=== PATIENT | female | born 1985 | race Caucasian/White ===

== ENCOUNTER 2016-12-04 18:58 | Emergency (ER) | payer OTHER ==
--- NOTE | 2016-12-04 19:59 | ED ---
- HPI Summary HPI Summary: Patient is an 8 week (by US) otherwise healthy female who presents to ED after 3 days of vaginal bleeding. 2 days ago, patient began spotting a brown discharge. Today the discharge was bright red and without clots. Denies cramping, abd pain, urinary symptoms, BRYANT, light headedness, or back pain. States yesterday she was feeling extremely fatigued and stayed in bed all day. Otherwise feeling normal. Takes calcium and vitamins. Does not yet have an OBGYN. Recently arrived back home from [place] where she was found out there to be . Has appt next week. - History of Current Complaint Chief Complaint: EDVaginalBleeding Stated Complaint: VAG BLEEDING/8WKS PREG Time Seen by Provider: 12/04/16 19:37 Hx Obtained From: Patient Chief Complaint: Concern for Demise Onset/Duration: Started Days Ago Timing: Intermittent Severity: Mild Current Severity: Moderate Pain Intensity: 5 Character: None Associated Signs and Symptoms: Positive: Negative, Vaginal Bleeding or Discharge - Assessment Hx Now: Yes Expected Date of Delivery: 07/16/17 Hx : 1 Hx Para: 0 History of Ectopic : No Hx Pelvic Inflammatory Disease: No Vaginal Bleeding Amount: Medium Contraction Intensity: No Contractions Contraction Pattern: No Contractions Hx Hysterectomy: No History of STI/STD: No - Risk Factors Ovarian Torsion Risk Factor: Reproductive Age - Allergies/Home Medications Allergies/Adverse Reactions: Allergies Allergy/AdvReac Type Severity Reaction Status Date / Time No Known Allergies Allergy Verified 12/04/16 19:12 PMH/Surg Hx/FS Hx/Imm Hx Previously Healthy: Yes - Immunization History Hx Pertussis Vaccination: No Immunizations Up to Date: No Infectious Disease History: No Infectious Disease History: Denies: Traveled Outside the [place] in Last 30 Days - Social History Occupation: Employed Full-time Lives: With Family Hx Substance Use: No Substance Use Type: Reports: None Hx Tobacco Use: No Do You Chew or Dip Tobacco: No Have You Chewed or Dipped Tobacco in the LAST YEAR: No Have You Smoked in the Last Year: No Household Exposure: No Review of Systems Positive: Fatigue Eyes: Negative Cardiovascular: Negative Respiratory: Negative Positive: see HPI, discharge - bleeding - BRB Musculoskeletal: Negative Skin: Negative Neurological: Negative Psychological: Normal All Other Systems Reviewed And Are Negative: Yes Physical Exam - Physical Exam Triage Information Reviewed: Yes Vital Signs Reviewed: Yes Appearance: Positive: Well-Appearing, No Pain Distress, Well-Nourished Skin: Positive: Warm, Skin Color Reflects Adequate Perfusion Head/Face: Positive: Normal Head/Face Inspection, Temporal Artery Tenderness Eyes: Positive: Normal, EOMI, VON ENT: Positive: Normal ENT inspection Neck: Positive: Supple, Nontender Respiratory/Lung Sounds: Positive: Clear to Auscultation, Breath Sounds Present Cardiovascular: Positive: Normal Abdomen Description: Positive: Nontender, Soft Bowel Sounds: Positive: Present Musculoskeletal: Positive: Normal Neurological: Positive: Normal Psychiatric: Positive: Normal Diagnostics - Vital Signs Vital Signs Temp Pulse Resp BP Pulse Ox 12/04/16 19:06 99.4 F 94 20 129/81 100 - Laboratory Result Diagrams: 12/04/16 20:05 12/04/16 20:05 Lab Statement: Any lab studies that have been ordered have been reviewed, and results considered in the medical decision making process. Course/Dx - Course Course Of Treatment: Light vaginal bleeding with x 3 days. IUP on US. 9 weeks gestation. Patient feeling OK. UA positive for leuks. Will treat for UTI with nitrofurantoin - safe in preg. Follow up with OB next week. - Differential Diagnosis/HQI/PQRI: Incomplete , Threatened , Early , UTI - Diagnoses Provider Diagnoses: UTI (urinary tract infection) during Discharge - Discharge Plan Condition: Stable Disposition: HOME Prescriptions: Nitrofurantoin Monohyd Macro [Macrobid] 100 mg PO BID #14 cap Nitrofurantoin Monohyd Macro [Macrobid] 100 mg PO BID #14 cap Patient Education Materials: Urinary Tract Infection in (ED) Referrals: No Primary Care Phys,NOPCP [Primary Care Provider] - Additional Instructions: Take abx as prescribed to you. Dx. Urinary Tract Infection Drink plenty of fluids. Supplement with cranberry or braga juice. You may also take an over the counter cranberry supplement. If you have any questions about this, you may ask your pharmacist. If your symptoms have not improved in 1-2 days, please return to , the emergency room, or call your PCP. Please take any medications prescribed to you as directed.
[2016-12-04 20:12] LABS: Hematocrit 39 % (35-47); Hemoglobin 13.2 g/dl (12.0-16.0); Mean Corpuscular HGB Conc 34 g/dl (31-36); Mean Corpuscular Hemoglobin 30 pg (27-31); Mean Corpuscular Volume 87 fL (80-97); Mean Platelet Volume 7 um3 (7.4-10.4); Red Blood Count 4.41 10^6/ul (4.0-5.4); Red Cell Distribution Width 13 % (10.5-15); White Blood Count 10.8 10^3/ul (3.5-10.8)
[2016-12-04 20:28] LABS: Albumin 3.6 g/dL (3.2-5.2); BUN/Creatinine Ratio 19.4 (8-20); Calcium 8.8 mg/dL (8.6-10.3); EGFR African American 134.8 (>60); EGFR Non-African American 104.8 (>60); Globulin 2.5 g/dL (2-4); Potassium 3.6 mmol/L (3.5-5.0); Total Bilirubin 0.3 mg/dL (0.2-1.0); Total Protein 6.1 g/dL (6.4-8.9)
[2016-12-04 21:02] LABS: Urine Bacteria 2+ (Absent); Urine Bilirubin Negative (Negative); Urine Glucose Negative (Negative); Urine Nitrite Negative (Negative)
--- NOTE | 2016-12-04 21:34 | RAD ---
INDICATION: Early with bleeding COMPARISON: None TECHNIQUE: Transvaginal scans were performed for the purposes of early evaluation. FINDINGS: There is a single intrauterine gestation with identification of the pole, yolk sac, and cardiac activity of 176 beats for minute. The crown-rump length corresponds to a 8 week 6 day gestation and the gestational sac size measurement to a 9 weeks 0 day gestation. The estimated due date is July 09, 2017. There is no subchorionic hemorrhage. The right ovary measures 4.4 x 3.0 x 2.3 cm and the left ovary 3.5 x 2.3 x 2.9 cm. IMPRESSION: IUP AT 9 WEEKS 0 DAYS WITH CONFIRMATION OF CARDIAC ACTIVITY.
[2016-12-04] MEDS ORDERED: Nitrofurantoin Macrocrystals* 100 MG CAP PO ONE (21:52)
[2016-12-04 22:38] VITALS: BP 134/78
== END 2016-12-04 22:36 | disposition home or self-care (01) ==
LOC: ED 18:58
DX: O23.41 Unspecified infection of urinary tract in pregnancy, first trimester (principal); N93.9 Abnormal uterine and vaginal bleeding, unspecified; Z3A.08 8 weeks gestation of pregnancy
CPT/HCPCS: 36415; 76801; 80053; 81003; 81015; 84702; 85025; 85610; 85730; 86850; 86900; 86901; 87086; 99282; A9270-GY

== ENCOUNTER 2016-12-08 12:40 | Emergency (ER) | payer OTHER ==
[2016-12-08] MEDS ORDERED: NS 0.9% 1000 ML* 1,000 ML IV ONE (13:01)
[2016-12-08] MEDS ORDERED: Promethazine TAB* 25 MG PO ONE (13:03)
[2016-12-08 13:13] VITALS: BP 119/74
--- NOTE | 2016-12-08 13:18 | UC ---
UC General HPI - HPI Summary HPI Summary: patient is 9 weeks , she has had non stop vomiting for the past 2 days. She was seen in the ER for UTI 2 days ago and put on macrobid. she states that she is not sure that she has truly gotten a dose because after the visit she started vomiting and has not stopped. has not urinated in 24 hours. cannot even tolerate ice. She has her first OB appointment next week. - History of Current Complaint Chief Complaint: UCGeneralIllness Stated Complaint: VOMITING Time Seen by Provider: 12/08/16 12:54 Hx Obtained From: Patient Onset/Duration: Sudden Onset, Lasting Days Timing: Constant Onset Severity: Moderate Current Severity: Severe Pain Intensity: 7 Associated Signs & Symptoms: Positive: Headache, Vomiting, Weakness - Allergy/Home Medications Allergies/Adverse Reactions: Allergies Allergy/AdvReac Type Severity Reaction Status Date / Time No Known Allergies Allergy Verified 12/04/16 19:12 Home Medications: Home Medications Vit W/ Ferrous Fumara [ One Daily 27-0.8 mg] 12/08/16 [History ] PMH/Surg Hx/FS Hx/Imm Hx Previously Healthy: Yes - Surgical History Surgical History: Yes Surgery Procedure, Year, and Place: appendicitis. umbilical hernia as a child - Family History Known Family History: Negative: Cardiac Disease, Hypertension - Social History Alcohol Use: None Substance Use Type: None Smoking Status (MU): Never Smoked Tobacco Have You Smoked in the Last Year: No Review of Systems Constitutional: Fatigue Skin: Negative Eyes: Negative ENT: Negative Respiratory: Negative Gastrointestinal: Vomiting Genitourinary: Negative Motor: Negative Neurovascular: Negative Musculoskeletal: Negative Neurological: Headache Psychological: Negative All Other Systems Reviewed And Are Negative: Yes Physical Exam Triage Information Reviewed: Yes Appearance: Well-Nourished, Ill-Appearing, Pain Distress Vital Signs: Initial Vital Signs Temp 97.5 F 12/08/16 13:07 Pulse 73 12/08/16 13:07 Resp 16 12/08/16 13:07 BP 119/74 12/08/16 13:07 Pulse Ox 98 12/08/16 13:07 Vital Signs Reviewed: Yes Eye Exam: Normal Eyes: Positive: Conjunctiva Clear ENT Exam: Normal ENT: Positive: Normal ENT inspection, Pharynx normal, TMs normal Dental Exam: Normal Neck exam: Normal Neck: Positive: Supple, Nontender, No Lymphadenopathy Respiratory Exam: Normal Respiratory: Positive: Chest non-tender, Lungs clear, Normal breath sounds Cardiovascular Exam: Normal Cardiovascular: Positive: RRR, No Murmur, Pulses Normal Abdominal Exam: Normal Abdomen Description: Positive: Nontender, No Organomegaly, Soft Bowel Sounds: Positive: Present Musculoskeletal Exam: Normal Musculoskeletal: Positive: Strength Intact, ROM Intact, No Edema Neurological Exam: Normal Neurological: Positive: Alert, Muscle Tone Normal Psychological Exam: Normal Skin Exam: Other - dry, some tenting noted on hands Re-Evaluation - Re-Evaluation First Eval Re-Evaluation Time: 14:20 Change: Improved - patient tolerating fluids and phenergan well. states some improvement Comment: patient able to void Course/Dx - Course Course Of Treatment: hx obtained, exam performed, IV inserted for IV hydration, phnergen given for anti nausea. - Differential Dx - Multi-Symptom Provider Diagnoses: vomiting. dehydration. Discharge - Discharge Plan Condition: Stable Disposition: HOME Patient Education Materials: Nausea and Vomiting in (ED) Additional Instructions: Take the phenergan as needed up to every 6 hours. Attempt to increase your fluid intake as tolerated. Follow up with your OB next week. return to ER for further evaluation if your vomiting becomes uncontrolled.
== END 2016-12-08 14:39 | disposition home or self-care (01) ==
LOC: UCEAST 12:40
DX: O21.9 Vomiting of pregnancy, unspecified (principal); Z3A.09 9 weeks gestation of pregnancy; E86.0 Dehydration; Z87.440 Personal history of urinary (tract) infections
CPT/HCPCS: 96360; 99212; G0463

== ENCOUNTER 2017-01-22 04:11 | Emergency (ER) | payer OTHER ==
[2017-01-22] MEDS ORDERED: NS 0.9% 1000 ML* 2,000 ML IV ONE (04:51)
[2017-01-22] MEDS ORDERED: Metoclopramide IV* 5 MG/ML 2 ML VIAL IV ONE (04:51)
[2017-01-22 05:58] LABS: Hematocrit 40 % (35-47); Hemoglobin 13.8 g/dl (12.0-16.0); Mean Corpuscular HGB Conc 35 g/dl (31-36); Mean Corpuscular Hemoglobin 31 pg (27-31); Mean Corpuscular Volume 89 fL (80-97); Mean Platelet Volume 8 um3 (7.4-10.4); Red Blood Count 4.48 10^6/ul (4.0-5.4); Red Cell Distribution Width 13 % (10.5-15); White Blood Count 10.5 10^3/ul (3.5-10.8)
[2017-01-22 06:07] LABS: ALT 10 U/L (7-52); AST 16 U/L (13-39); Albumin 3.3 g/dL (3.2-5.2); Alkaline Phosphatase 41 U/L (34-104); Anion Gap 7 mmol/L (2-11); BUN/Creatinine Ratio 14.3 (8-20); Blood Urea Nitrogen 10 mg/dL (6-24); CO2 Carbon Dioxide 23 mmol/L (22-32); Calcium 8.6 mg/dL (8.6-10.3); Chloride 103 mmol/L (101-111); EGFR African American 127.2 (>60); EGFR Non-African American 98.9 (>60); Globulin 2.6 g/dL (2-4); Glucose 107 mg/dL (70-100); Lipase < 10 U/L (11.0-82.0); Magnesium 1.8 mg/dL (1.9-2.7); Potassium 3.7 mmol/L (3.5-5.0); Sodium 133 mmol/L (133-145); Total Protein 5.9 g/dL (6.4-8.9)
--- NOTE | 2017-01-22 07:01 | ED ---
Job, Doctor,Porsha, scribed for Simi Valadez MD on 01/22/17 at 0701 . GI/ HPI - HPI Summary HPI Summary: 31 year old female arrived to [facility] c/o constant vomiting (9x/day) and diarrhea (5x/day) since 20:00 yesterday. She is 15 weeks , and has been vomiting for the duration of the . She has been taking medication regularly to help with the nausea/vomiting. She additionally reports feeling very dehydrated and hasn't urinated since 12:00 yesterday; this is her first . - History of Current Complaint Chief Complaint: EDNauseaVomitDiarrh Time Seen by Provider: 01/22/17 04:51 Stated Complaint: VOMITING/DIARRHEA 15 WKS PREG Hx Obtained From: Patient Onset/Duration: Started Hours Ago Timing: Constant Severity: Moderate Current Severity: Moderate Pain Intensity: 6 Associated Signs and Symptoms: Positive: Nausea, Vomiting. Negative: Dysuria Additional Signs & Symptoms: Positive: Positive Test - 15 weeks - Allergy/Home Medications Allergies/Adverse Reactions: Allergies Allergy/AdvReac Type Severity Reaction Status Date / Time No Known Allergies Allergy Verified 12/04/16 19:12 PMH/Surg Hx/FS Hx/Imm Hx - Surgical History Surgery Procedure, Year, and Place: appendicitis. umbilical hernia as a child Infectious Disease History: No Infectious Disease History: Denies: Traveled Outside the [place] in Last 30 Days - Family History Known Family History: Negative: Cardiac Disease, Hypertension - Social History Lives: With Family Alcohol Use: None Hx Substance Use: No Substance Use Type: Reports: None Hx Tobacco Use: No Smoking Status (MU): Never Smoked Tobacco Have You Smoked in the Last Year: No Review of Systems Negative: Fever Positive: Other - very dehydrated Positive: Vomiting, Nausea Positive: other - has not urinated for over 12 hours All Other Systems Reviewed And Are Negative: Yes Physical Exam Triage Information Reviewed: Yes Vital Signs On Initial Exam: Initial Vitals Temp Pulse Resp BP Pulse Ox 98.4 F 114 18 116/71 95 01/22/17 04:14 01/22/17 04:14 01/22/17 04:14 01/22/17 04:14 01/22/17 04:14 Vital Signs Reviewed: Yes Appearance: Positive: Well-Appearing, No Pain Distress Skin: Positive: Warm, Skin Color Reflects Adequate Perfusion, Dry Eyes: Positive: EOMI, VON ENT: Positive: Pharynx normal, TMs normal Neck: Positive: Supple, Nontender Respiratory/Lung Sounds: Positive: Clear to Auscultation, Breath Sounds Present. Negative: Rales, Rhonchi, Wheezes Cardiovascular: Positive: RRR. Negative: Murmur, Rub Abdomen Description: Positive: Nontender, Soft Bowel Sounds: Positive: Present Musculoskeletal: Positive: Strength/ROM Intact. Negative: Edema Left, Edema Right Neurological: Positive: Sensory/Motor Intact, Alert, Oriented to Person Place, Time, CN Intact II-III Psychiatric: Positive: Affect/Mood Appropriate Diagnostics - Vital Signs Vital Signs Temp Pulse Resp BP Pulse Ox 01/22/17 04:14 98.4 F 114 18 116/71 95 - Laboratory Lab Results: Lab Results 01/22/17 01/22/17 Range/Units 05:14 05:14 WBC 10.5 (3.5-10.8) 10^3/ul RBC 4.48 (4.0-5.4) 10^6/ul Hgb 13.8 (12.0-16.0) g/dl Hct 40 (35-47) % MCV 89 (80-97) fL MCH 31 (27-31) pg MCHC 35 (31-36) g/dl RDW 13 (10.5-15) % Plt Count 227 (150-450) 10^3/ul MPV 8 (7.4-10.4) um3 Neut % (Auto) 92.5 H (38-83) % Lymph % (Auto) 4.8 L (25-47) % Pitkin % (Auto) 2.4 (1-9) % Eos % (Auto) 0.2 (0-6) % Baso % (Auto) 0.1 (0-2) % Absolute Neuts (auto) 9.7 H (1.5-7.7) 10^3/ul Absolute Lymphs (auto) 0.5 L (1.0-4.8) 10^3/ul Absolute Monos (auto) 0.2 (0-0.8) 10^3/ul Absolute Eos (auto) 0 (0-0.6) 10^3/ul Absolute Basos (auto) 0 (0-0.2) 10^3/ul Absolute Nucleated RBC 0 10^3/ul Nucleated RBC % 0 Sodium 133 (133-145) mmol/L Potassium 3.7 (3.5-5.0) mmol/L Chloride 103 (101-111) mmol/L Carbon Dioxide 23 (22-32) mmol/L Anion Gap 7 (2-11) mmol/L BUN 10 (6-24) mg/dL Creatinine 0.70 (0.51-0.95) mg/dL Est GFR ( Amer) 127.2 (>60) Est GFR (Non-Af Amer) 98.9 (>60) BUN/Creatinine Ratio 14.3 (8-20) Glucose 107 H (70-100) mg/dL Calcium 8.6 (8.6-10.3) mg/dL Magnesium 1.8 L (1.9-2.7) mg/dL Total Bilirubin 0.70 (0.2-1.0) mg/dL AST 16 (13-39) U/L ALT 10 (7-52) U/L Alkaline Phosphatase 41 (34-104) U/L C-Reactive Protein 13.00 H (< 5.00) mg/L Total Protein 5.9 L (6.4-8.9) g/dL Albumin 3.3 (3.2-5.2) g/dL Globulin 2.6 (2-4) g/dL Albumin/Globulin Ratio 1.3 (1-3) Lipase < 10 L (11.0-82.0) U/L Result Diagrams: 01/22/17 05:14 01/22/17 05:14 Lab Statement: Any lab studies that have been ordered have been reviewed, and results considered in the medical decision making process. GIGU Course/Dx - Course Course Of Treatment: 15 week female with n/v pt is being hydrated at this time awaiting a urine and will be signed out to Dr. Willson - Diagnoses Provider Diagnoses: Hyperemesis arising during Discharge - Discharge Plan Condition: Stable Disposition: HOME The documentation as recorded by the ramosibDoctor granados Tahera accurately reflects the service I personally performed and the decisions made by , Simi Valadez MD.
[2017-01-22 09:12] LABS: Urine Bacteria Absent (Absent); Urine Bilirubin Negative (Negative); Urine Glucose Negative (Negative); Urine Nitrite Negative (Negative)
[2017-01-22 10:34] VITALS: BP 103/61
--- NOTE | 2017-01-23 11:14 | CONSULT ---
Consult Consult: Ms. Villalobos came in on the previous shift with N/V of which was an exacerbation of a chronic C/O. She was treated with meds and hydrated and felt much improved when I saw her. She was D/C'd in stable condition with a diagnosis of vomiting in .
== END 2017-01-22 09:56 | disposition home or self-care (01) ==
LOC: ED 04:11
DX: O21.0 Mild hyperemesis gravidarum (principal); Z3A.15 15 weeks gestation of pregnancy; E86.0 Dehydration
CPT/HCPCS: 36415; 80053; 81003; 81015; 83690; 83735; 85025; 86140; 87086; 96374; 96375; 99284

== ENCOUNTER 2017-06-25 05:37 | Inpatient (IN) | payer MEDICAID, OTHER ==
[2017-06-25 06:10] LABS: ROM Internal QC QC Line Present
[2017-06-25] MEDS ORDERED: Oxytocin in LR* 20 UNITS/1,000 ML BAG IVPB SCH ×2 (08:00→14:00)
[2017-06-25 08:30] LABS: Hematocrit 41 % (35-47); Hemoglobin 13.9 g/dl (12.0-16.0); Mean Corpuscular HGB Conc 34 g/dl (31-36); Mean Corpuscular Hemoglobin 31 pg (27-31); Mean Corpuscular Volume 93 fL (80-97); Mean Platelet Volume 8 um3 (7.4-10.4); Red Blood Count 4.41 10^6/ul (4.0-5.4); Red Cell Distribution Width 14 % (10.5-15); White Blood Count 12.7 10^3/ul (3.5-10.8)
[2017-06-25 08:40] LABS: Add Diff/Slide Review? Slide Review Added; Comments Flag Yes
[2017-06-25 09:24] LABS: Immature Granulocytes 6 % (0-9); Metamyelocytes % 4 % (0-2); Myelocytes % 2 % (0-1); Neutrophil % 71 % (38-83)
[2017-06-25 09:25] LABS: RBC Morphology Normal (Normal)
[2017-06-25] MEDS ORDERED: OBEPIDURAL* 250 ML ONE (09:26)
[2017-06-25] MEDS ORDERED: Famotidine TAB* 20 MG PO PRN (10:02)
[2017-06-25] MEDS ORDERED: Phenylephrine IV* 40 MCG/ML 10 ML SYRINGE IV PUSH PRN ×2 (10:02)
[2017-06-25] MEDS ORDERED: Sodium Citrate/Citric Acid* 15 ML UDC PO PRN (10:02)
[2017-06-25] MEDS ORDERED: OBEPIDURAL* 250 ML EPIDURAL SCH (11:00)
[2017-06-25] MEDS ORDERED: Acetaminophen TAB* 325 MG PO PRN (13:30)
[2017-06-25] MEDS ORDERED: Glycerin ADULT SUPP PR PRN (13:30)
[2017-06-25] MEDS: Witch Hazel PAD* JAR TOPICAL PRN (14:30)
[2017-06-25] MEDS: Ibuprofen TAB* 600 MG PO PRN ×2 (14:30→21:00)
[2017-06-25] MEDS: Dibucaine 1% 28.35 GM TUBE PR PRN (14:30)
[2017-06-25] MEDS ORDERED: Simethicone CHEW TAB* 80 MG PO SCH (17:30)
[2017-06-25] MEDS: Docusate CAP* 100 MG PO SCH (21:00)
[2017-06-26 08:11] LABS: Hematocrit 37 % (35-47); Hemoglobin 12.2 g/dl (12.0-16.0); Mean Corpuscular HGB Conc 33 g/dl (31-36); Mean Corpuscular Hemoglobin 31 pg (27-31); Mean Corpuscular Volume 94 fL (80-97); Mean Platelet Volume 8 um3 (7.4-10.4); Red Cell Distribution Width 14 % (10.5-15); White Blood Count 15.4 10^3/ul (3.5-10.8)
[2017-06-26 08:12] LABS: Add Diff/Slide Review? Slide Review Added; Comments Flag Yes
[2017-06-26] MEDS: Ibuprofen TAB* 600 MG PO PRN ×2 (08:31→21:29)
[2017-06-26] MEDS: Docusate CAP* 100 MG PO SCH ×3 (08:32→21:29)
[2017-06-26] MEDS ORDERED: Ferrous Gluconate TAB* 324 MG TAB PO SCH (09:00)
[2017-06-27] MEDS: Ibuprofen TAB* 600 MG PO PRN ×2 (06:13→14:35)
[2017-06-27] MEDS ORDERED: Ondansetron ODT TAB* 4 MG ONE (08:40)
[2017-06-27 09:09] LABS: Hematocrit 37 % (35-47); Hemoglobin 12.3 g/dl (12.0-16.0); Mean Corpuscular HGB Conc 33 g/dl (31-36); Mean Corpuscular Hemoglobin 31 pg (27-31); Mean Corpuscular Volume 94 fL (80-97); Mean Platelet Volume 8 um3 (7.4-10.4); Red Blood Count 3.93 10^6/ul (4.0-5.4); Red Cell Distribution Width 14 % (10.5-15)
[2017-06-27 09:15] LABS: Add Diff/Slide Review? Slide Review Added; Comments Flag Yes
[2017-06-27 09:28] VITALS: BP 113/68
[2017-06-27 10:01] LABS: Urine Bilirubin Negative (Negative); Urine Glucose Negative (Negative); Urine Nitrite Negative (Negative)
[2017-06-27 10:39] LABS: Albumin 2.9 g/dL (3.2-5.2); BUN/Creatinine Ratio 12.9 (8-20); Calcium 8.6 mg/dL (8.6-10.3); EGFR African American 146.4 (>60); EGFR Non-African American 113.8 (>60); Globulin 2.3 g/dL (2-4); Potassium 3.8 mmol/L (3.5-5.0); Total Bilirubin 0.5 mg/dL (0.2-1.0); Total Protein 5.2 g/dL (6.4-8.9)
[2017-06-27] MEDS: Docusate CAP* 100 MG PO SCH ×2 (14:34→14:36)
[2017-06-27] MEDS: Dibucaine 1% 28.35 GM TUBE PR PRN (14:35)
[2017-06-27] MEDS: Witch Hazel PAD* JAR TOPICAL PRN (14:35)
== END 2017-06-27 15:30 | disposition home or self-care (01) | DRG 560 ==
LOC: MCHOBOUT 05:37 → MCHOB 06:23
PROVIDERS: ADMIT Obstetrics & Gynecology; ATTEND Obstetrics & Gynecology
PROC: 10E0XZZ Delivery of Products of Conception, External Approach (ICD-10-PCS; principal; 2017-06-25)
PROC: 0HQ9XZZ Repair Perineum Skin, External Approach (ICD-10-PCS; 2017-06-25)
DX: O42.013 Preterm premature rupture of membranes, onset of labor within 24 hours of rupture, third trimester (principal); O99.344 Other mental disorders complicating childbirth; F32.9 Major depressive disorder, single episode, unspecified; O70.0 First degree perineal laceration during delivery; Z3A.37 37 weeks gestation of pregnancy; Z37.0 Single live birth
CPT/HCPCS: 36415; 80053; 81003; 84112; 85025; 86900; 86901; A9270-GY